=== PATIENT | female | born 1985 | race Caucasian/White ===

== ENCOUNTER 2017-04-07 08:00 | Inpatient (IN) ==
--- NOTE | 2017-04-07 08:48 | OB/GYN History & Physical ---
Date of Encounter: 04/07/17 Time of Encounter: 08:43 Assessment and Plan (1) Encounter for induction of labor Current visit: Yes Status: Acute Admit L&D for induction of labor Cali for induction. Desires epidural; platelet count pending GBS positive -- penicillin per protocol Will augment with Pitocin (2) Group B streptococcal carriage complicating Current visit: Yes Status: Acute Penicillin per protocol (3) 39 weeks gestation of Current visit: Yes Status: Acute History of Present Illness HPI: Ms. Burton is a 32 year old female at 39 weeks gestational age who presents to labor and delivery for induction of labor. Patient reports active movement. Denies complaints upon admission Gestational course has been uncomplicated. Labs: Blood type: O-, Rubella immune, GBS positive, Hep. B: nonreactive, Varicella IgG: Positive, HIV Ab: Negative. Past Med Surg Social Fam HX - Past Medical History Attestation: Yes The following information was validated with the patient. Source: patient - Past Surgical History Surgical History: non-contributory Obstetrical History - Pregnancies : 3 Para: 2 Term: 2 : 0 Ab's: 0 Livin Medications and Allergies DiphenhydraMINE [Benadryl] 25 mg PO 04/07/17 [History] Tablet PO DAILY 04/07/17 [History] 3 Allergy/AdvReac Type Severity Reaction Status Date / Time No Known Allergies Allergy Verified 04/07/17 09:01 Review of System OB All systems PM: reviewed and no additional remarkable complaints except as stated Exam - Constitutional Constitutional: well developed, well nourished, no acute distress - HEENT HEENT: Normocephaly, Mucus Membranes Moist - Lungs Respiratory exam: CTAB - Cardiovascular Cardiovascular exam: RRR, +S1, +S2 - Abdomen Abdomen: Present: gravid, non tender - Extremities Extremities exam: pedal edema - Cervix Dilation: 1 Effacement: 70 Station: -2 - Anus/Rectum Anus/Rectum: Present: normal perianal skin Results Result Diagrams: 04/07/17 08:30 All other labs normal.
[2017-04-07] MEDS ORDERED: Naloxone 0.4 MG/ML INJ IVP PRN ×2 (09:10→14:12)
[2017-04-07] MEDS ORDERED: Famotidine 20 MG/2 ML VIAL IVP PRN (09:10)
--- NOTE | 2017-04-07 09:24 | OB Labor Progress Note ---
Date of Encounter: 04/07/17 Time of Encounter: 09:15 Labor Progress Note - Subjective Subjective: Pt denies complaints at this time. - Cervix Cervix: /-2 - Heart Tones Heart Tones: Category I - [place]: few and irregular - Interventions Interventions: Cali balloon placed in cervix using sterile technique. Balloon inflated with 30ml sterile water. - Plan Plan: Admit for IOL. Cali for induction. Will augment with pitocin as needed. AROM when able. GBS ppx with PCN. Anticipate .
[2017-04-07] MEDS ORDERED: Penicillin G Potassium 5,000,000 UNIT in 0.9 % Sodium Chloride Mini Bag 100 ML IVPB ONE (09:25)
[2017-04-07 09:46] LABS: Basophils % 0.2 %; Eosinophils # 0.2 K/mcL (0.0-0.6); Eosinophils % 1.4 %; Hematocrit 34.2 % (35.3-44.9); Hemoglobin 11.2 g/dL (11.5-15.4); Immature Granulocytes % 0.5 % (0-4); Lymphocytes # 2.4 K/mcL (0.6-4.6); Lymphocytes % 21.1 %; Mean Corpuscular HGB Conc 32.7 g/dL (31.6-35.5); Mean Corpuscular Hemoglobin 27.8 pg (28.0-33.3); Mean Corpuscular Volume 84.9 fL (83.0-100.0); Mean Platelet Volume 12.5 fL (9.4-12.4); Monocytes # 0.8 K/mcL (0.0-1.3); Monocytes % 6.9 %; Neutrophils # 7.8 K/mcL (1.6-8.9); Platelet Count 226 K/mcL (140-400); Red Blood Count 4.03 M/mcL (3.82-4.97); Red Cell Distribution Width 12.9 % (11.5-14.5); Segmented Neutrophils % 69.9 %
[2017-04-07 09:56] LABS: Amphetamine Screen,Urine Negative ng/mL (Cutoff=1000); Barbiturate Screen,Urine Negative ng/mL (Cutoff=200); Benzodiazepines Screen,Urine Negative ng/mL (Cutoff=200); Cannabinoid Screen,Urine Negative ng/mL (Cutoff = 50); Cocaine Screen,Urine Negative ng/mL (Cutoff= 300); Opiate Screen,Urine Negative ng/mL (Cutoff=300); Phencyclidine Screen,Urine Negative ng/mL (Cutoff=25)
--- NOTE | 2017-04-07 10:02 | Anesthesia Evaluation PreOp ---
Date of Encounter: 04/07/17 Time of Encounter: 10:01 - Past History Planned Operation: NED Cardiac History: Denies any Significant Hx Pulmonary History: Denies Any Significant HX INCOMING INSPECTOR History: Denies Any Significant HX Other Medical History: Denies Any Significant HX Anesthesia History: No Prior Anesthetic Complications, Past Anesthesia (D&C, laparoscopy for ovarian cyst) : Yes Alcohol Use: none Drug use: none Medications and Allergies DiphenhydraMINE [Benadryl] 25 mg PO 04/07/17 [History] Tablet PO DAILY 04/07/17 [History] 3 Allergy/AdvReac Type Severity Reaction Status Date / Time No Known Allergies Allergy Verified 04/07/17 09:01 - Meds/Allergy Pre-op Review Medications Reviewed: Yes Allergies Reviewed: Yes Beta Blockers on Current Med List: No Anesthesia Results - Labs 04/07/17 08:30 Anesthesia Exam BP 121/81 P 70 R 16 T 98.6 Height: 5'9" Weight: 281lb NPO (# of Hours): 4 Pain Scale: 0 Pain Scale Used: Numeric (1 - 10) - HEENT Pupil (Motor): Pupils equal Mallampati: II Teeth: Normal Oral Opening: Greater than 3 - INCOMING INSPECTOR LOC: Oriented INCOMING INSPECTOR Motor: Normal RUE, Normal LUE, Normal RLE, Normal LLE, Normal Face INCOMING INSPECTOR Sensory: Normal: RUE, LUE, RLE, LLE, Face - Cardiac Rhythm: Regular Murmur: None JVD: No Carotid Bruit: No - Pulmonary Breath Sounds: bilateral Clear Respiratory Effort: Symmetrical Anesthesia Assess/Plan ASA Score: 2 Modified Katerin Scale for Level of Consciousness: Cooperative, oriented, and tranquil Anesthetic Plan: Regional Autologous Blood: No Monitoring Plan: Standard Monitors Recovery Plan: Other
[2017-04-07] MEDS ORDERED: Metoclopramide 10 MG/2 ML VIAL IVP ONE (10:57)
[2017-04-07] MEDS ORDERED: *HR* Nalbuphine 20 MG/ML AMPUL IVP PRN (10:57)
[2017-04-07] MEDS ORDERED: Ringers Solution, Lactated 1,000 ML IVC SCH (11:00)
[2017-04-07] MEDS ORDERED: Oxytocin 20 units/ LR 1000 mL 20 UNIT/1,000 ML BAG IVC SCH (11:00)
[2017-04-07] MEDS ORDERED: Ringers Solution, Lactated 1,000 ML ONE (11:01)
[2017-04-07] MEDS: Penicillin G Potassium 2,500,000 UNIT in 0.9 % Sodium Chloride 100 ML IVPB SCH ×2 (13:46→17:59)
[2017-04-07] MEDS ORDERED: Bupivacaine-MPF 0.25% 10 ML VIAL EP ONE (14:12)
[2017-04-07] MEDS ORDERED: EPHEDrine 50 MG/ML VIAL IVP PRN (14:12)
[2017-04-07] MEDS ORDERED: Ondansetron 4 MG/2 ML VIAL IVP PRN (14:12)
[2017-04-07] MEDS ORDERED: *HR* FentaNYL (PF) 100 MCG/2 ML VIAL EP ONE (14:12)
[2017-04-07] MEDS ORDERED: *HR* FentaNYL (PF) 100 MCG/2 ML VIAL ONE (14:15)
[2017-04-07] MEDS ORDERED: Epidural Premix (fent/bupiv) 110 ML EP SCH (14:15)
[2017-04-07] MEDS ORDERED: Epidural Premix (fent/bupiv) 110 ML EP ONE ×2 (14:18→21:05)
--- NOTE | 2017-04-07 15:21 | Anesthesia Procedures ---
Date of Encounter: 04/07/17 Time of Encounter: 14:20 Procedures: Anesthesia - Epidural/Spinal Patient ID/Chart reviewed: Yes Patient examined: Yes OB Eval: Gestational age: 39 OB Eval: : 3 OB Eval: Hx Para: 2 OB Eval: Dilated at (cm): 4 OB Eval: Contractions: Non-stressed pattern Consent Obtained: Yes Supplemental Oxygen: None/Room Air Supplemental Oxygen Rate (L/min): 2 Site Prep: Aseptic Technique, Sterile prep and drape, Povidone-Iodine 1% Patient position: upright Local Anesthetic: Lidocaine 1% Amount of Local Anesthetic used: 3 Touhy Needle Gauge: 18 Touhy Needle Depth (cm): 8 Catheter Depth at Skin (cm): 16 Test Dose (1.5% Lido + Epi): Volume given (mls): 3 Test Dose Result: Negative Loading Dose: 0.25% Marcaine (mls): 10 Loading Dose: Fentanyl (mcg): 100 Loading Dose Administered: Thru Catheter Infusion Med: 0.125% Bupivacaine w/ 2 mcg/ml Fentanyl Infusion Rate (mls/hr): [address]: Tegaderm, Tape Interspace Used: L3-L4 Loss of Resistance (ELISE): Yes Blood: No CSF: No Paresthesia: No Procedure: NED placed 1st pass without any immediate noted complications. VSS throughout. Vitals + FHT's: 1420 BP 114/71 P 66 R 18 1458 BP 113/65 P 63 R 16 FHt 130s
--- NOTE | 2017-04-07 15:33 | OB Labor Progress Note ---
Date of Encounter: 04/07/17 Time of Encounter: 15:31 Labor Progress Note - Subjective Subjective: Pt comfortable with epidural. - Cervix Cervix: 3/80/-2 - Heart Tones Heart Tones: Category I - [place]: Q2 - Interventions Interventions: AROM for large amount clear fluid. IUPC placed. - Plan Plan: COntinue to monitor and titrate pitocin. PCN ppx. Anticipate .
[2017-04-07] MEDS ORDERED: Lidocaine 1% 20 ML MDV ID ONE (21:48)
--- NOTE | 2017-04-07 22:13 | OB/GYN Procedure Note ---
Delivery - Delivery Date: 04/07/17 Provider: Nan Dawkins Intrapartum events: none Delivery induction: AROM, oxytocin, douglas Delivery monitor: external FHT, internal uterine Anesthesia: epidural Estimated Blood Loss: 200 - Infant (s) A Infant Delivery Date: 04/07/17 Delivery Time: 21:35 Presentation: vertex Position: LOLA Route of delivery: Gender: Male Viability: Viable Pounds: 7 Ounces: 11 Weight Gram: 3.48 kg at 1 minute: 8 at 5 mins: 8 Shoulder Dystocia: not encountered Specimens collected: cord blood Placenta: spontaneous Cord: 3 umbilical vessels - Repair Episiotomy: none Laceration Description: Perineal - 2nd Degree - Complications Delivery complications: none Delivery comments: Pt progressed normally and pushed effectively to for viable male "[place]" weighing 7lbs 11oz with apgars 8 at one minute and 8 at five minutes. After pulsations ceased the cord was clamped and cut and the placenta delivered spontaneous and intact. A second degree laceration was repaired with 2-0 Chromic. EBL 200ml. Mother and baby stable in kangaroo care following procedure. - Disposition Mom disposition: stable in LDR [place] disposition: stable in LDR
[2017-04-08] MEDS ORDERED: Acetaminophen 325 MG TABLET PO PRN (00:44)
[2017-04-08] MEDS ORDERED: Lanolin 28 GM TUBE TP PRN (00:44)
[2017-04-08] MEDS ORDERED: Measles/Mumps/Rubella Vacc 0.5 ML VIAL SQ PRN (00:44)
[2017-04-08] MEDS ORDERED: Benzocaine/Menthol 56 GM AEROSOL SPRAY TP PRN (00:44)
[2017-04-08] MEDS ORDERED: Oxytocin 20 units/ LR 1000 mL 20 UNIT/1,000 ML BAG IVC SCH (00:44)
[2017-04-08] MEDS ORDERED: Rho Immune Globulin 1,500 UNIT SYRINGE IM PRN (00:44)
[2017-04-08] MEDS: Ibuprofen 600 MG TABLET PO PRN ×2 (08:44→20:46)
[2017-04-08] MEDS: Prenatal Vit/FA 1 EACH TABLET PO SCH (08:44)
--- NOTE | 2017-04-08 08:49 | OB/GYN Progress Note ---
Date of Encounter: 04/08/17 Time of Encounter: 08:48 - Assessment and Plan (1) Vaginal delivery Current Visit: Yes Status: Acute Pt meeting milestones. Anticipate discharge home PPD#2. (2) Mother currently breast-feeding Current Visit: Yes Status: Acute Subjective - Subjective Patient reports: appetite normal, voiding normally, pain well controlled, ambulating normally [place]: doing well Objective - Latest Vital Signs Latest vital signs: Vital Signs Temp Pulse Resp BP Pulse Ox 04/08/17 07:30 98.2 F 69 16 101/62 04/08/17 02:30 98.6 F 91 16 119/79 96 04/08/17 01:30 98.6 F 88 16 151/66 98 04/08/17 00:30 97.6 F 94 16 112/78 98 Intake and Output 04/07/17 04/08/17 04/08/17 23:59 07:59 15:59 Intake Total 500 / 500 Output Total 1900 / 1900 Balance -1400 / -1400 Intake: Oral 500 / 500 Output: Urine 1900 / 1900 Other: Weight 124.7 kg Patient Weight 04/08/17 23:59 Weight 124.7 kg - Exam Lungs: bilateral: normal Chest: Normal S1, Normal S2 Extremities: Present: edema (1+ bilaterally) Abdomen: Present: soft, gravid Uterus: Present: firm - Labs Labs: Laboratory Results - last 24 hr 04/07/17 04/07/17 04/07/17 08:30 08:30 22:20 WBC 11.2 H RBC 4.03 Hgb 11.2 L Hct 34.2 L MCV 84.9 MCH 27.8 L MCHC 32.7 RDW 12.9 Plt Count 226 MPV 12.5 H Immature Gran % 0.5 Seg Neutrophils % 69.9 Lymphocytes % 21.1 Monocytes % 6.9 Eosinophils % 1.4 Basophils % 0.2 Neutrophils # 7.8 Lymphocytes # 2.4 Monocytes # 0.8 Eosinophils # 0.2 Basophils # 0.0 Urine Opiates Screen Negative Ur Barbiturates Screen Negative Ur Phencyclidine Scrn Negative Ur Amphetamines Screen Negative U Benzodiazepines Scrn Negative Urine Cocaine Screen Negative U Marijuana (THC) Screen Negative Baby's Blood Type O RH POSITIVE Mother's Blood Type O RH NEGATIVE Rhogam Indicated YES
[2017-04-09] MEDS: Prenatal Vit/FA 1 EACH TABLET PO SCH (08:58)
[2017-04-09] MEDS: Ibuprofen 600 MG TABLET PO PRN (08:58)
--- NOTE | 2017-04-09 08:58 | Discharge Summary ---
Date of Encounter: 04/09/17 Time of Encounter: 08:56 - Discharge Diagnosis (1) Vaginal delivery Priority: Primary Status: Acute Comments: Pt meeting milestones. (2) Mother currently breast-feeding Priority: Secondary Status: Acute - Discharge Medications Prescriptions: Ibuprofen [Motrin] 600 mg PO Q6HR PRN #30 tablet PRN Reason: Cramping Docusate [Colace] 100 mg PO BID #30 capsule Home Medications: Tablet PO DAILY 04/07/17 [History] Benzocaine/Menthol [place] [Dermoplast [place]] 1 appl TP QID PRN aerosol 04/09/17 [Rx] Docusate [Colace] 100 mg PO BID #30 capsule 04/09/17 [Rx] Ibuprofen [Motrin] 600 mg PO Q6HR PRN #30 tablet 04/09/17 [Rx] Lanolin 1 appl TP Q4HR PRN tube 04/09/17 [Rx] Vit/FA 1 each PO DAILY tablet 04/09/17 [Rx] Allergies/Adverse Reactions: 3 Allergy/AdvReac Type Severity Reaction Status Date / Time No Known Allergies Allergy Verified 04/07/17 09:01 Data Procedures and tests throughout hospitalization: Laboratory Tests 04/07/17 04/07/17 04/07/17 08:30 08:30 22:20 WBC 11.2 H RBC 4.03 Hgb 11.2 L Hct 34.2 L MCV 84.9 MCH 27.8 L MCHC 32.7 RDW 12.9 Plt Count 226 MPV 12.5 H Immature Gran % 0.5 Seg Neutrophils % 69.9 Lymphocytes % 21.1 Monocytes % 6.9 Eosinophils % 1.4 Basophils % 0.2 Neutrophils # 7.8 Lymphocytes # 2.4 Monocytes # 0.8 Eosinophils # 0.2 Basophils # 0.0 Urine Opiates Screen Negative Ur Barbiturates Screen Negative Ur Phencyclidine Scrn Negative Ur Amphetamines Screen Negative U Benzodiazepines Scrn Negative Urine Cocaine Screen Negative U Marijuana (THC) Screen Negative Screen NEGATIVE Baby's Blood Type O RH POSITIVE Mother's Blood Type O RH NEGATIVE Rhogam Indicated YES Rhogam Req for Mother 1 Labs on day of discharge: Labs from last 24 hours 04/07/17 22:20 Screen NEGATIVE Rhogam Req for Mother 1 Date of admission: 04/07/17 08:06 Primary care physician: Anna Canchola APN Consults: 04/08/17 00:44 Consult to Corporate Legal Secretary [CONS] Routine Comment: Vaginal delivery, consult needed Discharging clinician: Nan Dawkins Anticipated date of discharge: 04/09/17 - Patient Status Disposition: Home, Self-Care Condition: Good Functional capacity at discharge: independent ambulation Overall status at discharge: patient is progressing back to baseline - Discharge Instructions Follow Up With: Anna Canchola APN [Primary Care Provider] - Nan Dawkins CNM [Non-Partnered Physician] - - Diet and Activity Activity: increase activity as tolerated Diet: regular diet Hospital Course Reason for admission: induction of labor Delivery: Episiotomy: none Laceration: 2nd degree Other procedures: none complications: none Discharge diagnosis: IUP at term delivered [place] baby: male Hospital course: - Delivery Date: 04/07/17 Provider: Nan Dawkins Intrapartum events: none Delivery induction: AROM, oxytocin, douglas Delivery monitor: external FHT, internal uterine Anesthesia: epidural Estimated Blood Loss: 200 - (s) A Infant Delivery Date: 04/07/17 Delivery Time: 21:35 Presentation: vertex Position: LOLA Route of delivery: Gender: Male Viability: Viable Pounds: 7 Ounces: 11 Weight Gram: 3.48 kg at 1 minute: 8 at 5 mins: 8 Shoulder Dystocia: not encountered Specimens collected: cord blood Placenta: spontaneous Cord: 3 umbilical vessels - Repair Episiotomy: none Laceration Description: Perineal - 2nd Degree - Complications Delivery complications: none - Disposition Mom disposition: home PPD#2 disposition: home with mother, Time Attestation: Total time spent providing and/or coordinating discharge services: Time Spent: Less than 30 minutes Exam - Constitutional Vitals: Temp Pulse Resp BP Pulse Ox 98.2 F 66 16 131/78 98 04/08/17 19:44 04/08/17 20:00 04/08/17 20:00 04/08/17 19:44 04/08/17 19:44 General appearance IM: A&O X 3, no acute distress - Respiratory Respiratory exam: Present: CTAB - Cardiovascular Cardiovascular exam IM: Present: RRR, +S1, +S2 - GI/Abdominal GI/Abdominal exam IM: soft, no peritoneal signs - Uterine Tone: Firm - Extremities Exam Extremities exam IM: Present: pedal edema (mild bilaterally) - Neurological Exam Neurological exam: normal gait, oriented X3 - Psychiatric Additional comments: reports good mood
[2017-04-09 09:15] VITALS: BP 124/83
== END 2017-04-09 09:48 | disposition home or self-care (01) | DRG 775 ==
LOC: 1NENULAB 08:06 → 1NENUOBS 04-08 00:39
PROVIDERS: ADMIT Advanced Practice Midwife; ATTEND Advanced Practice Midwife

== ENCOUNTER 2020-01-20 13:16 | Observation (INO) ==
[2020-01-20] MEDS ORDERED: Pantoprazole 40 MG VIAL IVP ONE (13:31)
[2020-01-20] MEDS ORDERED: Morphine Sulfate 2 MG/ML SYRINGE IVP ONE (13:34)
[2020-01-20] MEDS ORDERED: Ondansetron 4 MG/2 ML VIAL IVP ONE (13:34)
[2020-01-20 14:02] LABS: Basophils % 0.1 %; Eosinophils # 0.1 K/mcL (0.0-0.6); Eosinophils % 0.7 %; Hematocrit 30.6 % (35.3-44.9); Hemoglobin 10.1 g/dL (11.5-15.4); Immature Granulocytes % 0.4 % (0-4); Lymphocytes # 1.8 K/mcL (0.6-4.6); Lymphocytes % 21.7 %; Mean Corpuscular Hemoglobin 28.5 pg (28.0-33.3); Mean Corpuscular Volume 86.2 fL (83.0-100.0); Mean Platelet Volume 10.5 fL (9.4-12.4); Monocytes # 0.4 K/mcL (0.0-1.3); Monocytes % 4.8 %; Neutrophils # 5.9 K/mcL (1.6-8.9); Platelet Count 219 K/mcL (140-400); Red Blood Count 3.55 M/mcL (3.82-4.97); Red Cell Distribution Width 12.2 % (11.5-14.5); Segmented Neutrophils % 72.3 %; White Blood Count 8.2 K/mcL (4.3-11.1)
[2020-01-20 14:06] LABS: Bilirubin,Urine Negative (Negative); Blood,Urine Negative (Negative); Clarity,Urine Clear (Clear); Color,Urine Yellow (Yellow); Glucose,Urine (UA) Normal (Normal); Ketones,Urine Negative (Negative); Leukocyte Esterase,Urine Negative (Negative); Nitrite,Urine Negative (Negative); PH,Urine 7.5 pH Units (5.0-8.0); Protein,Urine Trace mg/dL (Neg-Trace); Specific Gravity,Urine > 1.030 (1.010-1.025)
[2020-01-20 14:36] LABS: Alanine Aminotransferase 730 Units/L (7-52); Albumin 3.7 g/dL (3.5-5.7); Albumin/Globulin Ratio 1.5 (1.1-2.2); Alkaline Phosphatase 116 Units/L (34-104); Aspartate Amino Transferase 862 Units/L (13-39); BUN/Creatinine Ratio 17 (6-26); Bilirubin,Total 2.3 mg/dL (0.3-1.0); Blood Urea Nitrogen 11 mg/dL (6-20); Calcium 8.7 mg/dL (8.6-10.3); Carbon Dioxide 24 mEq/L (23-29); Chloride 108 mEq/L (98-107); Globulin 2.4 g/dL (2.4-3.5); Glucose 92 mg/dL (70-105); Osmolality,Calculated 285 (280-300); Potassium 3.7 mEq/L (3.5-5.1); Sodium 138 mEq/L (136-145); Total Protein 6.1 g/dL (6.4-8.9); eGFR For African Americans > 60 (> 60); eGFR For Non-African Americans > 60 (> 60)
[2020-01-20] MEDS ORDERED: Isovue-370 500 ML BOTTLE IVP ONE (16:40)
[2020-01-20] MEDS: 0.9 % Sodium Chloride 1,000 ML IVC SCH (16:55)
[2020-01-20] MEDS: Ketorolac 30 MG/ML VIAL IVP SCH ×2 (16:57→22:18)
[2020-01-20 17:47] LABS: Hepatitis B Surface Antigen Nonreactive (Nonreactive)
[2020-01-20] MEDS ORDERED: Acetaminophen IV 1,000 MG/100 ML BAG IVPB SCH (18:00)
[2020-01-20 18:16] LABS: Hepatitis B Core IgM Nonreactive (Nonreactive); Hepatitis C Virus Antibody Nonreactive (Nonreactive)
[2020-01-20 18:18] LABS: Hepatitis A Antibody IgM Nonreactive (Nonreactive)
[2020-01-20] MEDS: *HR* OxyCODONE Immed Rel 5 MG TABLET PO PRN (19:48)
[2020-01-20] MEDS: Piperacillin/Tazobactam 3.375 GM in 0.9 % Sodium Chloride Mini Bag 100 ML IVPB SCH (22:04)
[2020-01-21] MEDS: Morphine Sulfate Oral CONC 10 MG/0.5 ML ORAL.SYG SL PRN ×2 (01:59→11:23)
[2020-01-21] MEDS: 0.9 % Sodium Chloride 1,000 ML IVC SCH (04:56)
[2020-01-21] MEDS: Ketorolac 30 MG/ML VIAL IVP SCH ×4 (04:57→23:34)
[2020-01-21] MEDS: *HR* OxyCODONE Immed Rel 5 MG TABLET PO PRN ×2 (04:57→19:02)
[2020-01-21 05:16] LABS: Basophils % 0.1 %; Eosinophils # 0.1 K/mcL (0.0-0.6); Eosinophils % 1.4 %; Hematocrit 28.8 % (35.3-44.9); Hemoglobin 9.7 g/dL (11.5-15.4); Immature Granulocytes % 0.4 % (0-4); Lymphocytes # 1.4 K/mcL (0.6-4.6); Lymphocytes % 17.3 %; Mean Corpuscular HGB Conc 33.7 g/dL (31.6-35.5); Mean Corpuscular Hemoglobin 28.4 pg (28.0-33.3); Mean Corpuscular Volume 84.5 fL (83.0-100.0); Mean Platelet Volume 10.7 fL (9.4-12.4); Monocytes # 0.7 K/mcL (0.0-1.3); Monocytes % 8.5 %; Neutrophils # 5.8 K/mcL (1.6-8.9); Platelet Count 221 K/mcL (140-400); Red Blood Count 3.41 M/mcL (3.82-4.97); Red Cell Distribution Width 12.2 % (11.5-14.5); Segmented Neutrophils % 72.3 %
[2020-01-21 05:47] LABS: Alanine Aminotransferase 992 Units/L (7-52); Albumin 3.4 g/dL (3.5-5.7); Albumin/Globulin Ratio 1.5 (1.1-2.2); Alkaline Phosphatase 157 Units/L (34-104); Aspartate Amino Transferase 787 Units/L (13-39); BUN/Creatinine Ratio 18 (6-26); Bilirubin,Direct 2.2 mg/dL (0.0-0.2); Bilirubin,Indirect 1.3 mg/dL (0.0-1.0); Bilirubin,Total 3.5 mg/dL (0.3-1.0); Blood Urea Nitrogen 13 mg/dL (6-20); Calcium 8.4 mg/dL (8.6-10.3); Carbon Dioxide 21 mEq/L (23-29); Chloride 107 mEq/L (98-107); Globulin 2.2 g/dL (2.4-3.5); Glucose 107 mg/dL (70-105); Osmolality,Calculated 279 (280-300); Potassium 3.9 mEq/L (3.5-5.1); Sodium 134 mEq/L (136-145); Total Protein 5.6 g/dL (6.4-8.9); eGFR For African Americans > 60 (> 60); eGFR For Non-African Americans > 60 (> 60)
[2020-01-21] MEDS: Piperacillin/Tazobactam 3.375 GM in 0.9 % Sodium Chloride Mini Bag 100 ML IVPB SCH ×3 (07:53→23:35)
[2020-01-21] MEDS: Pantoprazole 40 MG VIAL IVP SCH (07:53)
[2020-01-21] MEDS: Acetaminophen 325 MG TABLET PO PRN ×2 (13:42→21:36)
[2020-01-21] MEDS: polyethylene glycoL 3350 17 GM POWD.PACK PO SCH (13:42)
[2020-01-21] MEDS: Ipratropium/Albuterol Neb 3 ML IH SCH ×2 (16:03→19:38)
[2020-01-22] MEDS: Ketorolac 30 MG/ML VIAL IVP SCH ×4 (05:49→23:11)
[2020-01-22 06:57] LABS: Basophils % 0.1 %; Eosinophils # 0.2 K/mcL (0.0-0.6); Eosinophils % 1.6 %; Hematocrit 29.5 % (35.3-44.9); Hemoglobin 9.8 g/dL (11.5-15.4); Immature Granulocytes % 0.5 % (0-4); Lymphocytes # 1.3 K/mcL (0.6-4.6); Lymphocytes % 13.3 %; Mean Corpuscular HGB Conc 33.2 g/dL (31.6-35.5); Mean Corpuscular Volume 87.3 fL (83.0-100.0); Monocytes # 0.9 K/mcL (0.0-1.3); Monocytes % 9.1 %; Neutrophils # 7.3 K/mcL (1.6-8.9); Platelet Count 233 K/mcL (140-400); Red Blood Count 3.38 M/mcL (3.82-4.97); Red Cell Distribution Width 12.6 % (11.5-14.5); Segmented Neutrophils % 75.4 %; White Blood Count 9.7 K/mcL (4.3-11.1)
[2020-01-22 07:28] LABS: Alanine Aminotransferase 573 Units/L (7-52); Albumin 3.5 g/dL (3.5-5.7); Albumin/Globulin Ratio 1.5 (1.1-2.2); Alkaline Phosphatase 152 Units/L (34-104); Aspartate Amino Transferase 230 Units/L (13-39); BUN/Creatinine Ratio 18 (6-26); Blood Urea Nitrogen 11 mg/dL (6-20); Calcium 8.9 mg/dL (8.6-10.3); Carbon Dioxide 20 mEq/L (23-29); Chloride 108 mEq/L (98-107); Globulin 2.3 g/dL (2.4-3.5); Glucose 94 mg/dL (70-105); Osmolality,Calculated 281 (280-300); Sodium 136 mEq/L (136-145); Total Protein 5.8 g/dL (6.4-8.9); eGFR For African Americans > 60 (> 60); eGFR For Non-African Americans > 60 (> 60)
[2020-01-22] MEDS: *HR* OxyCODONE Immed Rel 5 MG TABLET PO PRN ×2 (10:09→19:22)
[2020-01-22] MEDS: Acetaminophen 325 MG TABLET PO PRN ×2 (10:09→17:26)
[2020-01-22] MEDS: Pantoprazole 40 MG VIAL IVP SCH (10:10)
[2020-01-22] MEDS: Piperacillin/Tazobactam 3.375 GM in 0.9 % Sodium Chloride Mini Bag 100 ML IVPB SCH ×3 (10:10→23:11)
[2020-01-22] MEDS: polyethylene glycoL 3350 17 GM POWD.PACK PO SCH (10:11)
[2020-01-22] MEDS: 0.9 % Sodium Chloride 1,000 ML IVC SCH (11:44)
[2020-01-23] MEDS: *HR* OxyCODONE Immed Rel 5 MG TABLET PO PRN ×2 (02:48→08:57)
[2020-01-23 05:23] LABS: Basophils % 0.1 %; Eosinophils # 0.3 K/mcL (0.0-0.6); Eosinophils % 3.4 %; Hemoglobin 9.1 g/dL (11.5-15.4); Immature Granulocytes % 0.5 % (0-4); Lymphocytes # 1.5 K/mcL (0.6-4.6); Lymphocytes % 20.2 %; Mean Corpuscular HGB Conc 32.5 g/dL (31.6-35.5); Mean Corpuscular Hemoglobin 28.5 pg (28.0-33.3); Mean Corpuscular Volume 87.8 fL (83.0-100.0); Mean Platelet Volume 10.7 fL (9.4-12.4); Monocytes # 0.7 K/mcL (0.0-1.3); Monocytes % 8.7 %; Neutrophils # 5.1 K/mcL (1.6-8.9); Platelet Count 224 K/mcL (140-400); Red Blood Count 3.19 M/mcL (3.82-4.97); Red Cell Distribution Width 12.6 % (11.5-14.5); Segmented Neutrophils % 67.1 %; White Blood Count 7.6 K/mcL (4.3-11.1)
[2020-01-23] MEDS: Ketorolac 30 MG/ML VIAL IVP SCH (05:23)
[2020-01-23] MEDS: 0.9 % Sodium Chloride 1,000 ML IVC SCH ×2 (05:23→08:56)
[2020-01-23 05:30] LABS: INR 1.3; Prothrombin Time 15.3 Seconds (9.4-12.1)
[2020-01-23 05:42] LABS: Alanine Aminotransferase 357 Units/L (7-52); Albumin 3.2 g/dL (3.5-5.7); Albumin/Globulin Ratio 1.3 (1.1-2.2); Alkaline Phosphatase 114 Units/L (34-104); Aspartate Amino Transferase 86 Units/L (13-39); BUN/Creatinine Ratio 29 (6-26); Bilirubin,Direct 1.2 mg/dL (0.0-0.2); Bilirubin,Indirect 1.3 mg/dL (0.0-1.0); Bilirubin,Total 2.5 mg/dL (0.3-1.0); Blood Urea Nitrogen 16 mg/dL (6-20); Calcium 8.2 mg/dL (8.6-10.3); Carbon Dioxide 22 mEq/L (23-29); Chloride 111 mEq/L (98-107); Globulin 2.4 g/dL (2.4-3.5); Glucose 88 mg/dL (70-105); Osmolality,Calculated 289 (280-300); Potassium 3.7 mEq/L (3.5-5.1); Sodium 139 mEq/L (136-145); Total Protein 5.6 g/dL (6.4-8.9); eGFR For African Americans > 60 (> 60); eGFR For Non-African Americans > 60 (> 60)
[2020-01-23] MEDS: Pantoprazole 40 MG VIAL IVP SCH (08:55)
[2020-01-23] MEDS: Piperacillin/Tazobactam 3.375 GM in 0.9 % Sodium Chloride Mini Bag 100 ML IVPB SCH (08:56)
[2020-01-23] MEDS: Acetaminophen 325 MG TABLET PO PRN (08:57)
[2020-01-23] MEDS: polyethylene glycoL 3350 17 GM POWD.PACK PO SCH (08:57)
[2020-01-23 10:34] VITALS: BP 118/73
== END 2020-01-23 11:15 | disposition home or self-care (01) ==
LOC: EMEROOARM 13:16 → 3ANU 13:16
PROVIDERS: ADMIT Surgery; ATTEND Surgery